=== PATIENT | male | born 1990 | race Caucasian/White ===

== ENCOUNTER 2019-05-31 12:23 | Emergency (ER) | payer SELFPAY ==
[2019-05-31 12:33] VITALS: BP 119/52; PULSE 71; RESP 18; TEMP 36.6; O2SAT 99
--- NOTE | 2019-05-31 12:50 | W.ED.GENAD ---
Discharge Plan Disposition Patient Disposition: HOME Condition: Stable Discharge Details Chief Complaint: GenMedical Clinical Impression: Inguinal adenopathy Primary Care Provider: None,None ED Provider: Nelson Rojas Home Meds and New Rx's Prescriptions: No Action No Known Home Meds RF: 0 Discharge Instructions Instructions: Lymphadenopathy (ED) Additional Instructions: May use baby wipes or make-up remover wipes for general hygiene if you have to spend the night working and unable to have a shower. Consider the use of Goldbond powder or talcum powder to keep the groin creases dry and clean. Return if develop a fever, increasing mass, develop a one-sided groin mass, have difficulty urinating, or any other concerns. Medical Decision Making 28-year-old male presents with weeks of intermittent, bilateral inguinal discomfort and masses. He is well-appearing with unremarkable vital signs. His exam reveals descended testes that are nontender, no evidence of inguinal hernia or mass. He does have bilateral inguinal lymphadenopathy. 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 We discussed management strategies including improved hygiene, the use of talcum or Goldbond powder. We discussed return precautions as well. HPI General Mode of arrival: ambulatory. Date/Time Provider Initiated Documentation: 05/31/19 12:39. Limitations to Documentation: no limitations. Information obtained by: patient. History of Present Illness 28 year old M presents to the emergency department with the chief complaint of Bilateral groin discomfort over weeks time, described as moderate, Quality is described as dull, and is localized to the pelvis. Patient reports no radiation. Patient started experiencing this week(s) and it has been intermittent. No relieving factors improve symptom(s), No exacerbating factors reported . Patient notes no other symptoms.. Patient did receive the following treatments prior to arrival, none Related Data Home Medications Medication Instructions Recorded Confirmed Unknown [No Known Home Meds] 03/26/17 05/31/19 Allergies Allergy/AdvReac Type Severity Reaction Status Date / Time oranges Allergy Intermediate rash/hives Uncoded 05/31/19 12:36 General Stated Complaint: GenMedical ANGIE: 4 Review of Systems Narrative: No penile discharge, no change direction, normal urination. Normal bowel movements. 6 systems reviewed and otherwise negative [facility] Social History Smoking/Tobacco Use Status: Current every day Alcohol Intake: never Drug use: Occasionally Substance use type: marijuana Do you feel safe at home: Yes Do you feel safe in your relationship?: Yes Exam Narrative Exam Narrative: GEN: awake, alert, oriented 3. Pleasant, well groomed, interactive. HEAD: Normocephalic, atraumatic ENT: Mucous membranes moist, oropharynx unremarkable, External ear exam unremarkable EYES: PERRL, EOMI NECK: Full ROM, no LYNNE, no menigismus CHEST/RESP: Nontender, clear to auscultation bilateral, no wheeze/rhonchi/rales CARDIOVASCULAR: RRR, no murmur, rub rachel. 2+ Rad pulse bilateral ABDOMEN: Soft, nontender, no mass. 2+ femoral pulse. Bilateral inguinal lymphadenopathy that is mildly tender. No overlying erythema. Testes are descended bilaterally, no hernia appreciated. +Bowel sounds EXT: Full ROM, no edema, no rash Neuro: Grossly normal neurologic exam, conversant, interactive. Psych: Speech fluent, thoughts congruent, affect normal Course Vital Signs Vital signs: Vital Signs Temperature 36.6 C 05/31/19 12:33 Pulse 71 05/31/19 12:33 Respiratory Rate 18 05/31/19 12:33 Blood Pressure 119/52 L 05/31/19 12:33 Pulse Oximetry 99 05/31/19 12:33 Temperature 36.6 C 05/31/19 12:33 Temperature Source Temporal Artery Scan 05/31/19 12:33 Pulse 71 05/31/19 12:33 Respiratory Rate 18 05/31/19 12:33 Respiratory Effort 05/31/19 12:33 Blood Pressure 119/52 L 05/31/19 12:33 Pulse Oximetry 99 05/31/19 12:33 Oxygen Delivery Method Room Air 05/31/19 12:33 Oxygen Flow Rate 0 05/31/19 12:33 Pain Level 1 05/31/19 12:33
[2019-05-31 13:01] VITALS: RESP 16
== END 2019-05-31 13:03 | disposition home or self-care (01) ==
PROVIDERS: Emergency Provider Emergency Medicine
DX: I88.9 Nonspecific lymphadenitis, unspecified (principal)
CPT/HCPCS: 99282

== ENCOUNTER 2020-09-04 23:49 | Emergency (ER) | payer SELFPAY ==
[2020-09-04 23:54] VITALS: BP 138/82; PULSE 86; RESP 16; TEMP 36.6; O2SAT 100
[2020-09-05] MEDS: Bupivacaine 0.5% Pres-Free 30 ML VIAL
--- NOTE | 2020-09-05 00:01 | W.ED.GENAD ---
Discharge Plan Disposition Patient Disposition: HOME Condition: Good Discharge Details Clinical Impression: Pain, dental Primary Care Provider: None,None ED Provider: Josh Bay Home Meds and New Rx's Prescriptions: New penicillin V potassium 500 mg tablet 500 mg PO QID 10 Days Qty: 40 RF: 0 Discharge Instructions Instructions: Toothache (ED) Additional Instructions: The block we administered should help improve your pain. Please take 800 mg of ibuprofen every 6 hours and 1000 mg of Tylenol every 6 hours to help with the inflammation and pain. These are the maximum doses. Please take the antibiotic as directed to help with the infection in your tooth. Please use the dental list that we have provided to contact the dentist for prompt follow-up and evaluation for tooth removal. If you notice any worsening of your symptoms, or any new symptoms such as difficulty swallowing, difficulty breathing, vomiting, diarrhea, fever, chills, shortness of breath, chest pain, numbness, weakness, or fainting , please return immediately to the emergency department for reevaluation. Please follow up with your primary care provider as soon as possible for reassessment and reevaluation. As always, it was a pleasure participating in your medical care today. Medical Decision Making 29-year-old male presents for left upper dental pain. He has a history of notable dental caries. Pain is been present for the last week or so but notably worsening. He has not followed up with a dentist. He denies any difficulty drinking swallowing, he denies any fever or chills. Aside for the pain he has no other complaints at this time. Symptoms consistent with dental caries, suspected mild pulpitis and infection. Dental block was performed, patient experienced near complete relief of his pain. Will give penicillin for home use, as well as recommendations for Tylenol Motrin. Will give dental sheet for follow-up. Discussed red flags which to return. I have extensively reviewed the treatment plan and discharge instructions with the patient. I have addressed all patient concerns at this time. The patient was made aware of what symptoms to monitor for that would warrant a return to the emergency department. Discussed the plan with the patient, they demonstrate verbal understanding and agreement with our assessment and plan at this time. The documentation in this chart was dictated using [employer] dictation software. Please excuse any dictation errors. HPI General Date/Time Provider Initiated Documentation: 09/04/20 23:50. HPI Narrative: 29-year-old male presents for left upper dental pain. He has a history of notable dental caries. Pain is been present for the last week or so but notably worsening. He has not followed up with a dentist. He denies any difficulty drinking swallowing, he denies any fever or chills. Aside for the pain he has no other complaints at this time. Related Data Home Medications Medication Instructions Recorded Confirmed penicillin V potassium 500 mg PO QID 10 Days #40 tab 09/05/20 Previous Rx's Medication Instructions Recorded penicillin V potassium 500 mg PO QID 10 Days #40 tab 09/05/20 Allergies Allergy/AdvReac Type Severity Reaction Status Date / Time oranges Allergy Intermediate rash/hives Uncoded 09/04/20 23:57 General Stated Complaint: DentalOral ANGIE: 5 Review of Systems All systems reviewed & are unremarkable except as noted in HPI and below PFSH Social History Smoking/Tobacco Use Status: Current every day Smoking risk assessment performed?: Yes Alcohol Intake: former Drug use: Daily Substance use type: marijuana Details: No ETOH x 1 1/2 years Do you feel safe at home: Yes Do you feel safe in your relationship?: Yes Exam Narrative Exam Narrative: 1.Const: Well-nourished, Well-developed, appearing stated age 2.Eyes: PERRL, no conjunctival injection, and symmetrical lids. 3.ENT: Atraumatic external nose and ears. Moist MM. Neck: Symmetric, trachea midline, No thyromegaly. Notable dental caries throughout, mild dental caries in the upper left posterior molars. No periapical swelling or abscess that I can appreciate. No evidence of Ludewig's angina. No signs of airway compromise at all. 4.CVS: +S1/S2, No murmurs or gallops. Peripheral pulses 2+ and equal in all extremities. Brisk capillary refill in all extremities. 5.RESP: Unlabored respiratory effort. Clear to auscultation bilaterally. No wheezes rales or rhonchi 6.GI: Soft, Nontender/Nondistended, No hepatosplenomegaly. No guarding or rebound. 7.MSK: Normocephalic/Atraumatic, Extremities w/o deformity or ttp No cyanosis or clubbing, Normal movement of all extremities 8.Skin: Warm, Dry. No rashes or lesions. 9.Neuro: mainspring reverse winder II-XII grossly intact. Sensation grossly intact, no focal neurologic deficits. 10.Psych: (AAO) x3. Appropriate mood and affect Course Vital Signs Vital signs: Vital Signs Temperature 36.6 C 09/04/20 23:54 Pulse 86 09/04/20 23:54 Respiratory Rate 16 09/04/20 23:54 Blood Pressure 138/82 09/04/20 23:54 Pulse Oximetry 100 09/04/20 23:54 Temperature 36.6 C 09/04/20 23:54 Temperature Source Skin 09/04/20 23:54 Pulse 86 09/04/20 23:54 Respiratory Rate 16 09/04/20 23:54 Respiratory Effort Non-Labored 09/04/20 23:58 Blood Pressure 138/82 09/04/20 23:54 Pulse Oximetry 100 09/04/20 23:54 Oxygen Delivery Method Room Air 09/04/20 23:54 Oxygen Flow Rate 0 09/04/20 23:54 Pain Level 8 09/04/20 23:54 Procedures Nerve Block Nerve Block 1: Time out performed: Yes Local Anesthetic: Bupivicaine 0.5% Amount of anesthesia used (mL): 5 Side: left Intraoral Nerve Block: superior alveolar Procedure Successful: Yes Patient Tolerated Procedure: well Complications: none
== END 2020-09-05 00:11 | disposition home or self-care (01) ==
PROVIDERS: Emergency Provider Student in an Organized Health Care Education/Training Program
DX: R68.84 Jaw pain (principal)
CPT/HCPCS: 64450; 99283

== ENCOUNTER 2020-09-06 16:56 | Emergency (ER) | payer SELFPAY ==
--- NOTE | 2020-09-06 16:59 | ED.GENADUL_ITS ---
Discharge Plan Disposition Patient Disposition: HOME Condition: Good Discharge Details Clinical Impression: Chronic dental pain Primary Care Provider: None,None ED Provider: Marisabel Worrell Home Meds and New Rx's Prescriptions: Continued penicillin V potassium 500 mg tablet 500 mg PO QID 10 Days Qty: 40 RF: 0 Discharge Instructions Instructions: Toothache (ED) Additional Instructions: You may continue to alternate Tylenol and/or ibuprofen as needed for discomfort. Please machine operator picker and take the antibiotic as previously prescribed. Please continue the dental wax to help with your discomfort. Please keep your upcoming appointment tomorrow with your dentist. If develop any fevers or chills, difficulty swallowing or new/worsening symptoms please seek care urgently once a gain Care management will reach out to you in regard to establishing local primary care as well. Discharge Data Discharge Date/Time-TO BE ENTERED AT DEPARTURE: 09/06/20 17:33 Medical Decision Making Patient is a 29 year old male presenting today with c/c of dental pain x 1 month. States that pain affects the upper and lower dentition. Has not follow up with dentist. Was seen her 1.5 days ago at which time patient was started on Penicillin. He states he has been taking the abx as prescribed. Reports that he was on a month of antibiotics as prescribed by a urgent care facility in [place], [place]. He states that he took the one month of abx as prescribed. States that these interventions have not been sufficient at decreasing his pain. Has appointment with dentist tomorrow. States that he is no longer able to manage pain. Denies fevers/chills, no swelling, no difficulty swallowing. Reviewed note from recent visit, report today is notably different. Will contact urgent care in [place] to check on what abx he was on for a month. On exam, patient appears nontoxic. He has poor dentition with fractured left upper posterior tooth. This is likely the area of maximal discomfort. Patient did have a block to this region performed with good success. However, patient is reporting fairly diffuse pain has reported that his dental visits historically as well. He states that this pain is been present for the past month. I did reach out to urgent care and they were unable to give me information regarding the patient's previous visits. Patient is now reporting that he was on clindamycin 3 times daily x14 days. Received 2 prescriptions for this and took them in their entirety. Patient is also now reporting that he did not machine operator picker the penicillin that he was prescribed on his recent visit here. Patient I discussed likely source of his pain. I do not see any evidence to suggest an acute infection. However, the broken tooth that corresponds to the area of discomfort may be the source of his pain. Dental wax was applied over the broken tooth and he does report feeling much improved after this. He has an appointment tomorrow with a dentist. I did encourage you to take the penicillin as previously prescribed for him. He will continue with the dental wax until he is evaluated by his dentist tomorrow. Return precautions were discussed. All questions and concerns were addressed with agreement of plan. HPI General Mode of arrival: ambulatory . Date/Time Provider Initiated Documentation: 09/06/20 16:59 . Limitations to Documentation: no limitations . Information obtained by: patient, RN notes reviewed and old records reviewed . History of Present Illness 29 year old M presents to the emergency department with the chief complaint of left sided dental pain, described as severe, with intensity rated at 9. Quality is described as stabbing, and is localized to the mouth. Patient reports no radiation. Patient started experiencing this month(s) (1) and it has been constant. No relieving factors improve symptom(s), No exacerbating factors reported . Patient notes denies chest pain, cough, fever/chills, loss of appetite, nausea/vomiting, rash and shortness of breath. Patient did receive the following treatments prior to arrival, NSAID and other (tylenol) Related Data Home Medications Medication Instructions Recorded Confirmed penicillin V potassium 500 mg PO QID 10 Days #40 tab 09/05/20 Previous Rx's Medication Instructions Recorded penicillin V potassium 500 mg PO QID 10 Days #40 tab 09/05/20 Allergies Allergy/AdvReac Type Severity Reaction Status Date / Time oranges Allergy Intermediate rash/hives Uncoded 09/04/20 23:57 General ANGIE: 5 Review of Systems Constitutional Constitutional: Reports as per HPI, Denies chills, Denies fatigue, Denies fever(s), Denies headache(s) and Denies poor appetite Eyes Eyes: Denies change in vision and Denies irritation ENT Ears, Nose, Mouth, and Throat: Reports as per HPI, Reports dental pain, Denies dysphagia, Denies dizziness, Denies dry mouth, Denies ear discharge, Denies otalgia, Reports facial pain, Denies headache(s), Denies hoarseness, Denies lip swelling, Denies nasal congestion, Denies odynophagia and Denies sore throat Cardiovascular Cardiovascular: Reports as per HPI and Denies chest pain Respiratory Respiratory: Reports as per HPI and Denies cough Gastrointestinal Gastrointestinal: Reports as per HPI, Denies dysphagia, Denies nausea, Denies odynophagia and Denies vomiting Integumentary/Breasts Skin/Breast: Reports as per HPI, Denies erythema, Denies rash and Denies skin pain Neurologic Neurologic: Reports as per HPI, Denies dizziness and Denies headache(s) Endocrine Endocrine: Denies fatigue Allergic/Immunologic Allergic/Immunologic: Denies lip swelling [facility] Social History Smoking/Tobacco Use Status: Current every day Smoking risk assessment performed?: Yes Alcohol Intake: former Drug use: Daily Substance use type: marijuana Details: No ETOH x 1 1/2 years Do you feel safe at home: Yes Do you feel safe in your relationship?: Yes Exam Const General: cooperative, healthy appearing, comfortable, no acute distress, well developed, well groomed and anxious Nutritional Appearance: average body habitus and well nourished Orientation: alert and awake HENMS Head: normal to inspection, normocephalic and atraumatic Ears: hearing grossly normal bilaterally, external ears normal and TM's normal bilaterally General nose exam: external nose normal and nares normal Face and sinus: normal facial exam, sinuses nontender and face symmetric Mouth: oral mucosae normal, lip normal, tongue normal, oropharynx normal, moist mucous membranes, no muffled voice, no trismus and No restricted motion Teeth and gingiva: poor dentition (fractured #16 tooth alont posterior aspect) and other (diffuse gingival pain, no swelling, erythema or discharge noted) Throat: posterior oropharynx normal, tonsils normal and uvula midline Eyes General: appearance normal, both eyes and all related structures Neck Neck: normal visual inspection, full ROM, no lymphadenopathy, supple and no anterior neck swelling Resp Effort & Inspection: normal respiratory effort, able to speak in complete sentences and no respiratory distress Auscultation: clear to auscultation bilaterally, no rales, no rhonchi and no wheezes Cardio Rate: regular rate Rhythm: regular rhythm Heart Sounds: S1 normal and S2 normal Skin General skin exam: no rashes or lesions noted Trauma: no lacerations or abrasions Neuro General: patient alert and patient awake Cognition: normal cognition Speech: speech normal Gait: normal gait Psych Appearance: grossly normal and well kempt Mental Status: mental status grossly normal Speech and Movement: speech and movement normal
[2020-09-06 17:00] VITALS: BP 140/93; PULSE 93; RESP 20; TEMP 36.8; O2SAT 98
--- NOTE | 2020-09-06 17:32 | NUR.NOTE ---
Nursing Note: Referral given to Care Management for PCP to establish care. Wendy Masters
--- NOTE | 2020-09-09 11:43 | CMPROGNOTE_ITS ---
- If Service Date Differs Date of service: 09/09/20 Time of Service: 11:43 Care Management Progress Note Jaden is seen in the ED on 09/06/2020 for dental pain. At the request of ED provider, JEREMIAH coordinates a referral to Anuja Roche of [facility], on-call provider, to assist Jaden in establishing care with a PCP. A referral is also made to the [facility] [employer] at [facility] for assistance exploring health insurance options, as Jaden appears to currently be uninsured.
== END 2020-09-06 17:33 | disposition home or self-care (01) ==
PROVIDERS: Emergency Provider Physician Assistant
DX: R68.84 Jaw pain (principal); K08.89 Other specified disorders of teeth and supporting structures; G89.29 Other chronic pain; S02.5XXA Fracture of tooth (traumatic), initial encounter for closed fracture; X58.XXXA Exposure to other specified factors, initial encounter
CPT/HCPCS: 99283

== ENCOUNTER 2020-11-24 22:41 | Emergency (ER) | payer SELFPAY ==
[2020-11-24 22:44] VITALS: BP 147/72; PULSE 91; RESP 18; TEMP 36.4; O2SAT 98
[2020-11-24] MEDS: Tetracaine 0.5% 4 ML BTL (22:50)
[2020-11-24] MEDS: Fluorescein STRIPS 100/BOX 1 MG (22:50)
--- NOTE | 2020-11-24 23:28 | W.ED.GENAD ---
Discharge Plan Disposition Patient Disposition: HOME Condition: Stable Discharge Details Clinical Impression: Acute foreign body of right cornea, Corneal rust ring of right eye Primary Care Provider: None,None ED Provider: Williams Franklin Home Meds and New Rx's Prescriptions: No Action No Known Home Meds RF: 0 Discharge Instructions Instructions: Erythromycin (Into the eye), Eye Foreign Body (ED) Additional Instructions: Please follow-up tomorrow with an eye home care manager rn including [facility]. You have a rust ring that will need to be removed. Be sure to call first thing in the morning Use erythromycin ointment apply 0.5 inch ribbon to eye 4 times a day for the next 1 week. Please return to the emergency part for any worsening or new concerning symptom. [facility] Medical Decision Making 29-year-old male here with metallic foreign body in his right cornea around 2:00. Patient provided verbal consent to foreign body removal. I was able to remove the foreign body from his cornea using a 27-gauge needle. Rust ring remains. Will refer to ophthalmology to have respirating removal tomorrow. Erythromycin ointment was provided. Tetanus is up-to-date HPI General Mode of arrival: ambulatory. Date/Time Provider Initiated Documentation: 11/24/20 23:28. Limitations to Documentation: no limitations. Information obtained by: patient. HPI Narrative: 29-year-old male presents with chief complaint of foreign body in his right eye. Patient notes he was sawing metal this morning and thinks he got up in his eye at that time. Dad and father through the day until later this afternoon. He notes feels like something is scratching when he blinks. No visual changes Related Data Home Medications Medication Instructions Recorded Confirmed Unknown [No Known Home Meds] 11/24/20 11/24/20 Allergies Allergy/AdvReac Type Severity Reaction Status Date / Time oranges Allergy Intermediate rash/hives Uncoded 11/24/20 23:47 General Stated Complaint: EyeProblem ANGIE: 4 Review of Systems Eyes Eyes: Reports as per HPI [facility] Social History Smoking/Tobacco Use Status: Current every day Smoking risk assessment performed?: Yes Alcohol Intake: former Drug use: Daily Substance use type: marijuana Details: No ETOH x 1 1/2 years Do you feel safe at home: Yes Do you feel safe in your relationship?: Yes Exam Eyes Periorbital: periorbital findings normal Eyelids: eyelids normal Conjunctivae: conjunctivae normal Cornea: corneas abnormal on the left foreign body metallic and with rust ring present Pupils: PERRL EOM: EOM intact bilaterally Course Vital Signs Vital signs: Vital Signs Temperature 36.4 C L 11/24/20 22:44 Pulse 91 H 11/24/20 22:44 Respiratory Rate 18 11/24/20 22:44 Blood Pressure 147/72 H 11/24/20 22:44 Pulse Oximetry 98 11/24/20 22:44 Temperature 36.4 C L 11/24/20 22:44 Temperature Source Temporal Artery Scan 11/24/20 22:44 Pulse 91 H 11/24/20 22:44 Respiratory Rate 18 11/24/20 22:44 Respiratory Effort 11/24/20 22:47 Blood Pressure 147/72 H 11/24/20 22:44 Blood Pressure Position Sitting 11/24/20 22:44 Pulse Oximetry 98 11/24/20 22:44 Oxygen Delivery Method Room Air 11/24/20 22:44 Oxygen Flow Rate 0 11/24/20 22:44 Pain Level 0 11/24/20 22:44 Procedures FB Removal Eye Time Out performed: Yes Location: eye (R) Topical anesthetic used: tetracaine Foreign body: metal Evidence of corneal penetration: No Technique: cotton tip swab and needle Procedure performed under: direct visualization with magnification Post-procedure medication: ophthalmic antibiotic Patient tolerated procedure: well Complications: other (none)
[2020-11-24] MEDS: Erythromycin Ophth Oint 3.5 GM TUBE OD (23:46)
== END 2020-11-24 23:44 | disposition home or self-care (01) ==
PROVIDERS: Emergency Provider Student in an Organized Health Care Education/Training Program
DX: T15.01XA Foreign body in cornea, right eye, initial encounter (principal)
CPT/HCPCS: 65220

== ENCOUNTER 2023-10-01 08:05 | Day surgery (SDC) | payer SELFPAY ==
--- NOTE | 2023-09-30 21:09 | W.PM.DSUDISC ---
Date of service: 10/01/23 Time of Service: 09:38 Discharge Plan Disposition Patient Disposition: Home Condition: Good Discharge Details Reason For Visit: hemorrhoid banding Attending Provider: Anayeli Horta Primary Care Provider: None,None Home Meds and New Rx's Prescriptions: No Action hydrocortisone acetate 25 mg suppository 25 mg [place] DAILY Qty: 24 0RF ibuprofen [Advil Liqui-Gel] 200 mg capsule 400 mg PO Q6H PRN acetaminophen [Tylenol] 325 mg capsule 650 mg PO ONCE PRN Discharge Instructions Additional Instructions: Rubber Band Ligation for Hemorrhoids: What to Expect at Home Your Recovery In this procedure, a hemorrhoid was tied off at its base with rubber bands. You may feel pain and have a feeling of fullness in your lower belly. Or you may feel as if you need to have a bowel movement. This usually goes away within several days after the surgery. You may need pain medicine during this time. You may have a small amount of bleeding from your anus about 7 to 10 days after surgery, when your hemorrhoid falls off. This is normal. Some people are able to return to regular activities in 24 hours. Others may need 2 to 3 days of rest. You will need to avoid heavy lifting and straining with bowel movements for the next 5-7 days. This care sheet gives you a general idea about how long it will take for you to recover. But each person recovers at a different pace. Follow the steps below to get better as quickly as possible. How can you care for yourself at home? Activity ? Rest when you feel tired. Getting enough sleep will help you recover. ? Try to walk each day. Start by walking a little more than you did the day before. Bit by bit, increase the amount you walk. Walking boosts blood flow and helps prevent pneumonia and constipation. ? Avoid strenuous activities, such as bicycle or horse back riding, jogging, weight lifting, or aerobic exercise, for 1 week ? For 1 week avoid lifting anything that would make you strain (generally over 30#?s). This may include heavy grocery bags and milk containers, a heavy briefcase or backpack, cat litter or dog food bags, a vacuum overhead cleaner, or a child. ? You may take showers and baths as usual. Pat your anal area dry when you are done. ? Ask your doctor when you can drive again. ? You may need to take a day off work. It depends on the procedure you had, the type of work you do, and how you feel. Diet ? You can eat your normal diet. If your stomach is upset, try eating bland, low-fat foods like plain rice, broiled chicken, toast, and yogurt. ? Drink plenty of fluids (unless your doctor has told you not to). ? It is important to eat high-fiber foods after your procedure. This will make it easier to have bowel movements and keep your hemorrhoids from coming back. ? You may notice that your bowel movements are not regular right after your procedure. This is common. Try to avoid constipation and straining with bowel movements. You may want to take a fiber supplement every day. If you have not had a bowel movement after a couple of days, ask your doctor about taking a mild laxative. Pain Control ? Your doctor will tell you if and when you can restart your medicines. He or she will also give you instructions about taking any new medicines. ? If you take aspirin or some other blood thinner, ask your doctor if and when to start taking it again. ? Take pain medicines? as directed: Take tylenol 500 mg by mouth with food every 4 hours as needed for pain. Or ibuprofen 600 mg by mouth with food every 6 hours as needed for pain.? Do not take tylenol if you have a history of heavy drinking, hepatits C or liver problems.? Do not take ibuprofen if you have a history of stomach ulcers/problems, bleeding problem or kidney issues. If you think your pain medicine is making you sick to your stomach: o?? Take your medicine after meals (unless your doctor has told you not to). ? Sit in 5 to 10 inches plain of warm water (sitz bath) for 15 to 20 minutes 3 times a day and after bowel movements. Then pat the area dry. Do this as long as you have pain in your anal area. ? Put ice or a cold pack on the area for 10 to 20 minutes at a time. Try to do this every 1 to 2 hours for the next 3 days (when you are awake). Put a thin cloth between the ice and your skin. ? Support your feet with a small step stool when you sit on the toilet. This helps flex your hips and places your pelvis in a squatting position. This can make bowel movements easier after your procedure. ? Miralax as needed to avoid constipation or straining to move your bowels. When should you call for help? Call?911?anytime you think you may need emergency care. For example, call if: ? You passed out (lost consciousness). ? You are short of breath. Call your doctor or nurse advice line now?or seek immediate medical care if: ? You cannot pass stools or gas. ? You are sick to your stomach and cannot drink fluids. ? Bright red blood has soaked through the bandage. ? You have signs of a blood clot in your leg (called a deep vein thrombosis), such as: o?? Pain in the calf, back of your knee, thigh, or groin. o?? Redness and swelling in your leg or groin. ? You have signs of infection, such as: o?? Increased pain, swelling, warmth, or redness. o?? Red streaks leading from the area. o?? Pus draining from the area. o?? A fever. Activity:: see above Diet:: As Tolerated Discharge Orders Discharge Orders: Discharge Order (Routine); Ordered 10/01/23 Ordered By: Anayeli Horta DS: Diagnosis Discharge Diagnosis (1) Marijuana smoker, episodic: Status: Acute (2) Internal hemorrhoids: Status: Acute Asessment and Plan: The patient is doing well post-op from their hemorrhoid banding.? They are having no nausea or vomiting. They are tolerating liquids and a snack. The pt is not having any chest pain or SOB.? Their pain is adequately controlled. They have been able to urinate.? ?HEENT:? no eye pain/drainage/redness/swelling. Mild sore throat ?Cardio- NSR, no chest pain, BP stable- see VS record ?Pulm: no sob or productive cough. No hemoptysis ?Incision- dressing is c/d/i w/ no excessive bleeding or drainage ?I discussed with the patient the findings at the time of surgery and the patient?s progress. ?We reviewed expectations at home; what the patient could expect for recovery time, and in the post-operative period.? We discussed the importance of walking to avoid blood clots and pneumonia.? We discussed and reviewed the patient's post-operative wound care and dressing needs.?? We reviewed their step-jimenez pain management plan, Rx called to the pharmacy of their choice.? We reviewed activity and limitations-see discharge instructions. We reviewed warning signs, and when to seek medical attention- see d/c instructions.?? Patient was given a postoperative follow-up appointment. Patient verbalized understanding of their postoperative instructions, how do to take care of themselves and their incision, and the pain management plan. Please see discharge instructions.? (3) Smoker: Status: Acute
--- NOTE | 2023-09-30 21:18 | W.PM.OP ---
Date of service: 10/01/23 Time of Service: 09:36 Operative Note Operative Note DATE OF PROCEDURE: 10/01/23 PRE-OP DIAGNOSIS: painful internal hemorrhoids POST-OP DIAGNOSIS: same PROCEDURE: Internal hemorrhoid bading x2 columns SURGEON: Anayeli Horta ANESTHESIA TYPE: General:No Airway Refer to Anesthesia Record ESTIMATED BLOOD LOSS: 1 PATHOLOGY: none sent COMPLICATIONS: None Patient was transported to: same day Patient's condition: stable Procedure Description: PROCEDURE NOTE: The patient presents with symptomatic grade II hemorrhoids, unresponsive to maximal medical therapy, requesting rubber band ligation of his/her hemorrhoid disease.? All risks, benefits and alternative forms of therapy were described and informed consent was obtained, explaining risks and benefits of the procedure including but not limited to: bleeding/infection/recurrence/complications of anesthesia/need for repeat procedure. In the Left Lateral Decubitus position anoscopic examination revealed grade II hemorrhoids in the ?RP/7 o?clock, LL/3 o?clock.? There are no other masses noted.? Good sphincter tone. No rectal prolapse. The suction licensed prosthetist/orthotist was used to perform band ligation without complication.? Digital anorectal examination was then performed to assure proper positioning of the band, and to adjust the banded tissue as required.? The patient was discharged home without pain or bleeding. ?Instructions were given in wound care/activity/warning signs and a pain management plan, as well as instructions to avoid constipation. along with follow-up instructions.? No complications were encountered and the patient tolerated the procedure well.
[2023-10-01 08:30] VITALS: BP 117/72; PULSE 113; RESP 16; TEMP 36.1; O2SAT 99
[2023-10-01] MEDS: Lactated Ringers 1,000 ML 80 ML IV (08:54)
--- NOTE | 2023-10-01 08:58 | ANES.PREOP_ITS ---
General Info Date of Service Date Performed: 10/01/23 Height: 5 ft 9 in Weight: 67.5 kg Body Mass Index (BMI): 21.9 Surgical Procedure: Operation Date: 10/01/23 09:10 Proposed Procedure Side Surgeon p Internal Hemorrhoid Banding X1 Column Anayeli Horta DO Pre-Op Diagnosis Post-Op Diagnosis Internal Hemorrhoid Meds Allergies and Home Medications Allergies Allergy/AdvReac Type Severity Reaction Status Date / Time oranges Allergy Intermediate rash/hives Uncoded 10/01/23 08:43 Home Medication Medication Instructions Recorded hydrocortisone acetate 25 mg 25 mg [place] DAILY #24 ea 09/06/23 rectal suppository acetaminophen 325 mg capsule 650 mg PO ONCE PRN 09/23/23 (Tylenol) ibuprofen 200 mg capsule (Advil 400 mg PO Q6H PRN 09/23/23 Liqui-Gel) Current Visit Medications: Current Medications Generic Name Dose Route Start Last Admin Trade Name Freq PRN Reason Stop Dose Admin Ringer's Solution 1,000 mls @ 80 mls/hr 10/01/23 06:00 10/01/23 08:54 IV 10/01/23 23:59 80 mls/hr INFUSION COMPA Administration IV Miscellaneous Supplies 1 each 10/01/23 06:00 Iv Access IV 10/01/23 23:59 DIRECTED COMPA Ketorolac Tromethamine 15 mg 10/01/23 06:00 Ketorolac 15 Mg/Ml Vial IVP 10/01/23 23:59 ONCE COMPA Ondansetron HCl 4 mg 10/01/23 00:45 Ondansetron 4 Mg/2 Ml Vial IVP 10/31/23 00:44 Q4H PRN PRN Nausea / Vomiting Sodium Biphosphate/Sodium Phosphate 133 ml 10/01/23 06:00 Na Phosphate Enema 133 Ml Btl MA 10/02/23 23:59 PREOP COMPA Sodium Chloride 0 ml 10/01/23 06:00 Normal Saline Flush 10 Ml Syr IV 10/01/23 23:59 PRN PRN Sodium Chloride 0 ml 10/01/23 06:00 Normal Saline 10 Ml Vial IJ 10/01/23 23:59 DIRECTED PRN Sterile Water 0 ml 10/01/23 06:00 Water,Injection,Sterile 10 Ml Vial IJ 10/01/23 23:59 DIRECTED PRN PFSH Active Problems Active Problems: Problem Status Onset Code Internal hemorrhoids K64.8 Marijuana smoker, episodic F12.90 Smoker F17.200 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 Acute foreign body of right cornea T15.01XA Surgical History Surgical History Hx of inguinal hernia surgery Hx of wisdom tooth extraction Tobacco Smoking/Tobacco Use Status: Current every day Tobacco Type: cigarettes Alcohol Alcohol Intake: former Substance Use Substance use: Daily Substance use type: marijuana Details: cigarette: t, Marijuana: t Vital Signs and Lab Results Vital Signs Most Recent Vital Signs in EMR: Most Recent Vital Signs Temp Pulse Resp BP Pulse Ox 36.1 C L 113 H 16 117/72 99 10/01/23 08:30 10/01/23 08:30 10/01/23 08:30 10/01/23 08:30 10/01/23 08:30 Lab Results Blood Type / Crossmatch: 2 No Data to Display Complete Blood Count: 2 No Data to Display Complete Metabolic Panel: 2 No Data to Display Liver Function Panel: 2 No Data to Display Coagulation Panel: 2 No Data to Display Cardiac Panel: 2 No Data to Display Arterial Blood Gas: 2 No Data to Display Venous Blood Gas: 2 No Data to Display Pancreas Panel: 2 No Data to Display Thyroid Panel: 2 No Data to Display Infectious Disease: 2 No Data to Display Blood Cultures: 2 No Data to Display Toxicology Panel: 2 No Data to Display Anesthesia Assessment and Plan Anesthesia History Personal History: No History of Anesthesia Complications Family History: No Family History of Anesthesia Complications Exercise Tolerance Exercise Tolerance: Metabolic Equivalents>4 Pertinent Negatives Pertinent Negatives: No Symptoms of GERD, No Major Cardiovascular Symptoms or Complaints, No Major Pulmonary Symptoms or Complaints and No History of CVA/TIA Cardiac & Pulmonary Exam Cardiac Exam: Normal S1/S2 Heart Sounds Pulmonary Exam: Clear Bilateral Breath Sounds Implantable Cardiac Device Does patient have a Pacemaker or an ICD?: No Airway Exam Known Difficult Airway: No Mallampati Class: 1 Mouth Opening: Normal (> 3cm) Thyromental Distance: Greater than 3 cm Facial Hair: Full [place]reras Neck Range of Motion: Full ROM Neck Circumference: Normal Teeth Condition: Generalized Poor Dentition, Loose or Chipped, Dental Caries and Advised tooth loss possible given current condition (indicate tooth) (see tooth numbering chart) Tooth Numberin 1. Extremely loose back molar ASA Classification ASA Score: ASA 2 Emergency Case?: No NPO Status NPO Status: NPO Clears >2 hours, Solids >8 hours Anesthesia Plan Resuscitation Status: Full Code Anesthesia Technique: General Anesthesia Airway Planned: Natural Airway Monitors Used: Standard Monitors
[2023-10-01 09:13] VITALS: BMI 21.9
[2023-10-01 09:29] VITALS: BP 115/75; PULSE 86; RESP 16; TEMP 36.3; O2SAT 96
--- NOTE | 2023-10-01 09:38 | W.ANESPOSTOP ---
Postoperative Evaluation Date, Time and Location Date Performed: 10/01/23 Time Performed: 09:38 Patient Location: Day Surgery Unit Vital Signs Most Recent Imported Vital Signs: Most Recent Vital Signs Temp Pulse Resp BP Pulse Ox 36.3 C L 86 16 115/75 96 10/01/23 09:29 10/01/23 09:29 10/01/23 09:29 10/01/23 09:29 10/01/23 09:29 Pain Score Most Recent Pain Score: Most Recent Pain Score Pain Level 0 10/01/23 09:29 Assessment Mental Status: Awake (Alert & Oriented to Patient Baseline) Airway and Respiratory Function: Patent airway with normal (patient baseline) respiratory exam Cardiovascular Function: Hemodynamically Stable Hydration Status: Adequately Hydrated Nausea & Vomiting: No Nausea or Vomiting Pain: Pt. Denies Any Pain Peripheral Nerve Block: Patient did not receive a nerve block
[2023-10-01] MEDS: Acetaminophen 500 MG TAB 1000 MG PO (09:40)
[2023-10-01 10:03] VITALS: BP 114/76; PULSE 76; RESP 16; TEMP 36.4; O2SAT 96
[2023-10-01] MEDS: Methocarbamol 750 MG TAB PO (10:28)
--- NOTE | 2023-10-01 10:37 | PDOC.DSDIS_ITS ---
Date of service: 10/01/23 Time of Service: 10:39 Discharge Plan Disposition Patient Disposition: Home Condition: Good Discharge Details Reason For Visit: hemorrhoid banding Attending Provider: Anayeli Horta Primary Care Provider: None,None Home Meds and New Rx's Prescriptions: New methocarbamol 750 mg tablet 750 mg PO QID PRN (Reason: pain (scale score 7-10)) Qty: 40 0RF Continued ibuprofen [Advil Liqui-Gel] 200 mg capsule 400 mg PO Q6H PRN acetaminophen [Tylenol] 325 mg capsule 650 mg PO ONCE PRN Discontinued hydrocortisone acetate 25 mg suppository 25 mg [place] DAILY Qty: 24 0RF Discharge Instructions Additional Instructions: Rubber Band Ligation for Hemorrhoids: What to Expect at Home Your Recovery In this procedure, a hemorrhoid was tied off at its base with rubber bands. You may feel pain and have a feeling of fullness in your lower belly. Or you may feel as if you need to have a bowel movement. This usually goes away within several days after the surgery. You may need pain medicine during this time. You may have a small amount of bleeding from your anus about 7 to 10 days after surgery, when your hemorrhoid falls off. This is normal. Some people are able to return to regular activities in 24 hours. Others may need 2 to 3 days of rest. You will need to avoid heavy lifting and straining with bowel movements for the next 5-7 days. This care sheet gives you a general idea about how long it will take for you to recover. But each person recovers at a different pace. Follow the steps below to get better as quickly as possible. How can you care for yourself at home? Activity ? Rest when you feel tired. Getting enough sleep will help you recover. ? Try to walk each day. Start by walking a little more than you did the day before. Bit by bit, increase the amount you walk. Walking boosts blood flow and helps prevent pneumonia and constipation. ? Avoid strenuous activities, such as bicycle or horse back riding, jogging, weight lifting, or aerobic exercise, for 1 week ? For 1 week avoid lifting anything that would make you strain (generally over 30#?s). This may include heavy grocery bags and milk containers, a heavy briefcase or backpack, cat litter or dog food bags, a vacuum machine fur cleaner, or a child. ? You may take showers and baths as usual. Pat your anal area dry when y ou are done. ? Ask your doctor when you can drive again. ? You may need to take a day off work. It depends on the procedure you had, the type of work you do, and how you feel. Diet ? You can eat your normal diet. If your stomach is upset, try eating bland, low-fat foods like plain rice, broiled chicken, toast, and yogurt. ? Drink plenty of fluids (unless your doctor has told you not to). ? It is important to eat high-fiber foods after your procedure. This will make it easier to have bowel movements and keep your hemorrhoids from coming b ack. ? You may notice that your bowel movements are not regular right after your procedure. This is common. Try to avoid constipation and straining with bowel movements. You may want to take a fiber supplement every day. If you have not had a bowel movement after a couple of days, ask your doctor about taking a mild laxative. Pain Control ? Your doctor will tell you if and when you can restart your medicines. He or she will also give you instructions about taking any new medicines. ? If you take aspirin or some other blood thinner, ask your doctor if and when to start taking it again. ? Take pain medicines? as directed: Take tylenol 500 mg by mouth with food every 4 hours as needed for pain. Or ibuprofen 600 mg by mouth with food every 6 hours as needed for pain.? Do not take tylenol if you have a history of heavy drinking, hepatits C or liver problems.? Do not take ibuprofen if you have a history of stomach ulcers/problems, bleeding problem or kidney issues. If you think your pain medicine is making you sick to your stomach: o?? Take your medicine after meals (unless your doctor has told you not to). ? Sit in 5 to 10 inches plain of warm water (sitz bath) for 15 to 20 minutes 3 times a day and after bowel movements. Then pat the area dry. Do this as long as you have pain in your anal area. ? Put ice or a cold pack on the area for 10 to 20 minutes at a time. Try to do this every 1 to 2 hours for the next 3 days (when you are awake). Put a thin cloth between the ice and your skin. ? Support your feet with a small step stool when you sit on the toilet. This helps flex your hips and places your pelvis in a squatting position. This can make bowel movements easier after your procedure. ? Miralax as needed to avoid constipation or straining to move your bowels. When should you call for help? Call?911?anytime you think you may need emergency care. For example, call if: ? You passed out (lost consciousness). ? You are short of breath. Call your doctor or nurse advice line now?or seek immediate medical care if: ? You cannot pass stools or gas. ? You are sick to your stomach and cannot drink fluids. ? Bright red blood has soaked through the bandage. ? You have signs of a blood clot in your leg (called a deep vein thrombosis), such as: o?? Pain in the calf, back of your knee, thigh, or groin. o?? Redness and swelling in your leg or groin. ? You have signs of infection, such as: o?? Increased pain, swelling, warmth, or redness. o?? Red streaks leading from the area. o?? Pus draining from the area. o?? A fever. Stand Alone Forms: Anesthesia Discharge Inst., Marita Black ([facility]) Activity:: see above Diet:: As Tolerated Discharge Orders Discharge Orders: Discharge Order (Routine); Ordered 10/01/23 Ordered By: Anayeli Horta DS: Diagnosis Discharge Diagnosis (1) Marijuana smoker, episodic: Status: Acute (2) Internal hemorrhoids: Status: Acute (3) Smoker: Status: Acute
== END 2023-10-01 10:58 | disposition home or self-care (01) ==
LOC: SUR 08:05
PROVIDERS: Visit Provider Surgery
PROC: (CPT 46221; principal; 2023-10-01 09:00)
DX: K64.1 Second degree hemorrhoids; F17.210 Nicotine dependence, cigarettes, uncomplicated; F12.90 Cannabis use, unspecified, uncomplicated
CPT/HCPCS: 46221; J1885; J2250; J2704; J3010